=== PATIENT | male | born 1995 | race African-American/Black ===

== ENCOUNTER 2022-11-02 00:51 | Emergency (ER) | payer MEDICAID ==
[~2022-11-02] VITALS: Ht 188 cm; Wt 77.1 kg
--- NOTE | 2022-11-02 01:30 | NUR ---
PT NEEDS MEDICAL CLEARANCE FOR PLACEMENT, HE GOT KICKED OUT EARLIER FROM REHAB DUE TO OUTBURST. HX OF SCHIZO, BIPOLAR, SUICIDAL, HALLUCINATION. PATIENT IS AOX4. ABLE TO MAKE NEEDS KNOWN. PLACED IN RM 18
--- NOTE | 2022-11-02 01:38 | NUR ---
URINE SPECIMEN AND COVID SWAB DONE AND SENT TO LAB
[2022-11-02 01:58] LABS: BASOPHILS % (AUTO) 0.8 % (0.0-2.0); EOSINOPHILS % (AUTO) 2.3 % (0.0-6.0); HEMATOCRIT 45 % (39-51); HEMOGLOBIN 14.4 g/dL (13.5-17.5); LYMPHOCYTES # (AUTO) 2.3 K/uL (0.8-4.8); LYMPHOCYTES % (AUTO) 42.4 % (20.0-44.0); MEAN CORPUSCULAR HGB CONC 32 g/dl (31.0-36.0); MEAN CORPUSCULAR VOLUME 87 fL (80-96); MONOCYTES # (AUTO) 0.5 K/uL (0.1-1.30); MONOCYTES % (AUTO) 8.7 % (2.0-12.0); NEUTROPHILS # (AUTO) 2.5 K/uL (1.8-8.9); NEUTROPHILS % (AUTO) 45.8 % (43.0-81.0); PLATELET COUNT (AUTO) 205 K/uL (150-450); RED BLOOD CELL COUNT(AUTO) 5.18 MIL/uL (4.5-6.0); WHITE BLOOD COUNT (AUTO) 5.4 K/uL (4.3-11.0)
[2022-11-02 02:10] LABS: BILIRUBIN,URINE 1+ (NEGATIVE); COLOR,URINE YELLOW (YELLOW); LEUKOCYTE ESTERASE ,URINE NEGATIVE (NEGATIVE); NITRITE, URINE NEGATIVE (NEGATIVE); PROTEIN,URINE NEGATIVE (NEGATIVE); UGLUCOSE NEGATIVE (NEGATIVE)
[2022-11-02 02:13] LABS: BACTERIA,URINE Rare /HPF (None Seen); SQUAMOUS EPITHELIAL CELL,UR Few /HPF (None Seen); WBC,URINE 0-2 /HPF (0-3)
[2022-11-02 02:14] LABS: CALCIUM, SERUM 8.7 mg/dL (8.5-10.1); CARBON DIOXIDE 26 mmol/L (21-32); CHLORIDE 105 mmol/L (98-107); CREATININE 0.9 mg/dL (0.6-1.3); GLUCOSE 156 mg/dL (74-106); POTASSIUM 3.7 mmol/L (3.5-5.1); SODIUM SERUM 137 mmol/L (136-145); UREA NITROGEN, BLOOD 11 mg/dL (7-18)
[2022-11-02 02:19] LABS: ALANINE AMINOTRANSFERASE 33 U/L (12-78); ALBUMIN 3.8 g/dL (3.4-5.0); ALCOHOL, BLOOD < 3 mg/dL (0-10); ALKALINE PHOSPHATASE 66 U/L (46-116); ASPARTATE AMINOTRANSFERASE 18 U/L (15-37); BILIRUBIN,TOTAL 0.1 mg/dL (0.2-1.0); TOTAL PROTEIN, SERUM 6.9 g/dL (6.4-8.2)
--- NOTE | 2022-11-02 20:45 | NUR ---
pt no longer wishes to stay in er. denies si/hi. Dr velarde aware. Pt left er in stable condition
[2022-11-02 22:14] VITALS: BP 124/75
== END 2022-11-02 20:45 | disposition home or self-care (01) ==
LOC: ER 00:55
DX: R45.851 Suicidal ideations (principal); F31.9 Bipolar disorder, unspecified; F20.9 Schizophrenia, unspecified; Z20.822 Contact with and (suspected) exposure to COVID-19
CPT/HCPCS: 99285; 85025; 80048; 80076; 81001; 36415; 87426; 80143; 80320; 80307; C9803; G0480

== ENCOUNTER 2022-11-03 03:58 | Emergency (ER) | payer MEDICAID ==
[~2022-11-03] VITALS: Ht 188 cm; Wt 77.1 kg
--- NOTE | 2022-11-03 04:55 | NUR ---
PATIENT HAS HALLUCINATIONS AUDITORY. SOMEBODY BEEN TELLING HIM TO KILL HIMSELF, HX OF SCHIZO
[2022-11-03 05:38] LABS: BILIRUBIN,URINE NEGATIVE (NEGATIVE); COLOR,URINE YELLOW (YELLOW); LEUKOCYTE ESTERASE ,URINE NEGATIVE (NEGATIVE); NITRITE, URINE NEGATIVE (NEGATIVE); PH,URINE 6.5 (5.0-8.0); PROTEIN,URINE NEGATIVE (NEGATIVE); UGLUCOSE NEGATIVE (NEGATIVE); UROBILINOGEN,URINE 0.2 EU/dL (0.2)
[2022-11-03 05:38] LABS: BASOPHILS # (AUTO) 0.1 K/uL (0.0-0.2); BASOPHILS % (AUTO) 0.6 % (0.0-2.0); EOSINOPHILS % (AUTO) 0.6 % (0.0-6.0); HEMATOCRIT 44 % (39-51); HEMOGLOBIN 14.5 g/dL (13.5-17.5); LYMPHOCYTES # (AUTO) 1.7 K/uL (0.8-4.8); LYMPHOCYTES % (AUTO) 14.3 % (20.0-44.0); MEAN CORPUSCULAR HGB CONC 33 g/dl (31.0-36.0); MEAN CORPUSCULAR VOLUME 85 fL (80-96); MONOCYTES # (AUTO) 0.6 K/uL (0.1-1.30); MONOCYTES % (AUTO) 4.8 % (2.0-12.0); NEUTROPHILS # (AUTO) 9.3 K/uL (1.8-8.9); NEUTROPHILS % (AUTO) 79.7 % (43.0-81.0); PLATELET COUNT (AUTO) 212 K/uL (150-450); RED BLOOD CELL COUNT(AUTO) 5.17 MIL/uL (4.5-6.0); WHITE BLOOD COUNT (AUTO) 11.7 K/uL (4.3-11.0)
[2022-11-03 06:33] LABS: CALCIUM, SERUM 8.9 mg/dL (8.5-10.1); CARBON DIOXIDE 24 mmol/L (21-32); CHLORIDE 103 mmol/L (98-107); CREATININE 0.7 mg/dL (0.6-1.3); GLUCOSE 88 mg/dL (74-106); POTASSIUM 3.6 mmol/L (3.5-5.1); SODIUM SERUM 137 mmol/L (136-145); UREA NITROGEN, BLOOD 9 mg/dL (7-18)
[2022-11-03 06:50] LABS: ALANINE AMINOTRANSFERASE 29 U/L (12-78); ALBUMIN 4.1 g/dL (3.4-5.0); ALKALINE PHOSPHATASE 61 U/L (46-116); ASPARTATE AMINOTRANSFERASE 17 U/L (15-37); BILIRUBIN,DIRECT 0.1 mg/dL (0.0-0.2); BILIRUBIN,TOTAL 0.1 mg/dL (0.2-1.0); TOTAL PROTEIN, SERUM 7.3 g/dL (6.4-8.2)
[2022-11-03 06:52] LABS: ALCOHOL, BLOOD < 3 mg/dL (0-10)
--- NOTE | 2022-11-03 08:47 | NUR ---
CALLED [facility] [employer] AND LEFT VOICEMAIL
--- NOTE | 2022-11-03 10:30 | NUR ---
FAXED FACESHEET AND CLINICALS TO [facility]
--- NOTE | 2022-11-03 13:17 | NUR ---
[facility] [place] [phone]
--- NOTE | 2022-11-03 13:40 | NUR ---
ACCEPTED AT [facility]. STILL WAITING FOR BED AVAILABILITY
--- NOTE | 2022-11-03 13:42 | NUR ---
Patient has been accepted to [facility].
--- NOTE | 2022-11-03 13:46 | NUR ---
LINCOLN [phone] FROM [facility] CALLED WITH ACCEPTANCE INFO. PATIENT ACCEPTED AT [facility] UNDER [address]. BRADLEY. NUMBER FOR REPORT IS [phone].
--- NOTE | 2022-11-03 13:53 | NUR ---
Patient has been accepted into [facility].
--- NOTE | 2022-11-03 13:54 | NUR ---
SPOKE WITH LES FROM [facility] AND ARRANGED BLS TRANSPORT TO [facility]. ETA IS 60 MIN
--- NOTE | 2022-11-03 14:16 | NUR ---
CONTACTED [facility] FOR REPORT SPOKED WITH CHARGE NURSE SEGUNDO AND THAT THEY DON'T HAVE STAFF NURSE TO ATTEND TO PATIENT. SHE WILL CALL BACK POSSIBLY AT 1999.
--- NOTE | 2022-11-03 14:16 | NUR ---
BLS TRANSPORT TO [facility] CANCELLED.
--- NOTE | 2022-11-03 14:48 | NUR ---
LINCOLN [phone] FROM [facility] CALLED WITH AND STATED TO SEND PT TO [facility]. ADMIN AWARE
--- NOTE | 2022-11-03 14:54 | NUR ---
SET UP FOR [facility] FOR BLS TRANSPORT. ETA IS 90 MIN
--- NOTE | 2022-11-03 16:32 | NUR ---
[facility] ARRIVED FOR TRANSPORT
[2022-11-03 17:49] VITALS: BP 119/64
== END 2022-11-03 17:50 ==
LOC: ER 04:00
DX: Z00.8 Encounter for other general examination (principal); F31.9 Bipolar disorder, unspecified; F20.9 Schizophrenia, unspecified; Z20.822 Contact with and (suspected) exposure to COVID-19
CPT/HCPCS: 99285; 85025; 80048; 80076; 81003; 36415; 87426; 80143; 80320; 80307; C9803; G0480